=== PATIENT | female | born 1990 | race Caucasian/White ===

== ENCOUNTER 2018-07-14 14:46 | Inpatient (IN) ==
[2018-07-14] MEDS ORDERED: LACTATED RINGERS 1,000 ML IV SCH (15:30)
[2018-07-14 15:55] LABS: Basophils % 0.4 % (0.0-0.8); Eosinophils # 0.1 10*3/uL (0.0-0.87); Eosinophils % 0.5 % (0.00-10.9); Hematocrit 37.4 VOL% (35.7-47.0); Hemoglobin 11.2 GM/DL (12.0-16.0); Immature Granulocytes % 0.5 %; Immature Granulocytes Absolute 0.06 #; Lymphocytes # 1.8 10*3/uL (1.4-4.0); Lymphocytes % 16.3 % (21.3-54.2); Mean Corpuscular HGB Conc 29.9 GM/DL (32-36); Mean Corpuscular Hemoglobin 25 PG (27-34); Mean Corpuscular Volume 81.7 FL (87-102); Monocytes # 0.7 10*3/uL (0.11-0.8); Monocytes % 6.3 % (1.7-12.7); Neutrophils # 8.3 10*3/uL (1.4-7.4); Platelet Count 214 T/CUMM (130-400); Red Blood Count 4.58 MC/CUMM (3.8-5.5); Red Cell Distribution Width 16.3 % (9.3-17.3)
[2018-07-14 16:07] LABS: INR 0.9; PT Patient Result 9.7 SECS; Partial Thromboplastin Time 24.5 SECS (0-40)
[2018-07-14 16:26] LABS: Bilirubin,Direct < 0.100 MG/DL (0.0-0.20); Uric Acid 4.3 MG/DL (2.6-6.0)
[2018-07-14 16:30] LABS: Alanine Aminotransferase 19 U/L (13-56); Albumin 2.3 G/DL (3.4-5.0); Alkaline Phosphatase 188 U/L (45-117); Aspartate Amino Transferase 12 U/L (0-37); Bilirubin,Total < 0.39 MG/DL (0.2-1.0); Blood Urea Nitrogen 13 MG/DL (7-18); Calcium 8.8 MG/DL (8.5-10.1); Glucose 91 MG/DL (74-106); Potassium 3.8 MMOL/L (3.5-5.1); Sodium 136 MMOL/L (136-145); Total Protein 6.7 G/DL (6.4-8.3)
[2018-07-15] MEDS ORDERED: FAMOTIDINE 20 MG/2 ML VIAL IV ONE (09:00)
[2018-07-15] MEDS ORDERED: OXYTOCIN/LR 20 UNIT/1,000 ML BAG IV ONE ×2 (09:00→16:54)
[2018-07-15] MEDS ORDERED: ceFAZolin 3,000 MG in SYRINGE 1 EACH IV ONE (09:00)
[2018-07-15] MEDS ORDERED: CITRIC ACID/SODIUM CITRATE 30 ML UDCUP PO ONE (09:00)
[2018-07-15] MEDS ORDERED: ONDANSETRON 4 MG/2 ML VIAL IV PRN (16:54)
[2018-07-15] MEDS ORDERED: RHO(D) IMMUNE GLOBULIN 300 MCG SYRINGE IM ONE (16:54)
[2018-07-15] MEDS ORDERED: SIMETHICONE CHEW 80 MG TABLET PO PRN (16:54)
[2018-07-15] MEDS ORDERED: ACETAMINOPHEN 325 MG TABLET PO PRN (16:54)
[2018-07-15] MEDS ORDERED: LACTATED RINGERS 1,000 ML IV SCH (17:00)
[2018-07-15] MEDS ORDERED: fentaNYL 100 MCG/2 ML VIAL ONE (17:06)
[2018-07-15] MEDS ORDERED: MORPHINE 10 MG/10 ML VIAL ONE (17:06)
[2018-07-15] MEDS ORDERED: BUPIVACAINE SPINAL 0.75% 2 ML AMP SPINAL ONE (17:07)
[2018-07-15] MEDS ORDERED: PHENYLEPHRINE 1 MG/10 ML SYRINGE IV ONE (17:07)
[2018-07-15] MEDS: oxyCODONE/ACETAMINOPHEN 5-325 MG TABLET PO PRN (21:23)
[2018-07-15] MEDS: IBUPROFEN 800 MG TABLET PO PRN (21:25)
[2018-07-15] MEDS: DOCUSATE SODIUM 100 MG CAPSULE PO SCH (21:26)
[2018-07-16] MEDS: ceFAZolin 1,000 MG in SYRINGE 1 EACH IV SCH ×2 (00:14→06:48)
[2018-07-16 04:30] LABS: Basophils % 0.4 % (0.0-0.8); Eosinophils # 0.1 10*3/uL (0.0-0.87); Eosinophils % 0.9 % (0.00-10.9); Hemoglobin 9.2 GM/DL (12.0-16.0); Immature Granulocytes % 0.4 %; Immature Granulocytes Absolute 0.03 #; Lymphocytes # 1.4 10*3/uL (1.4-4.0); Lymphocytes % 16.9 % (21.3-54.2); Mean Corpuscular HGB Conc 30.7 GM/DL (32-36); Mean Corpuscular Hemoglobin 25 PG (27-34); Mean Corpuscular Volume 80.9 FL (87-102); Monocytes # 0.7 10*3/uL (0.11-0.8); Neutrophils % 73.4 % (38.7-73.9); Platelet Count 134 T/CUMM (130-400); Red Blood Count 3.71 MC/CUMM (3.8-5.5); Red Cell Distribution Width 16.3 % (9.3-17.3); White Blood Count 8.2 T/CUMM (4-12)
[2018-07-16] MEDS: oxyCODONE/ACETAMINOPHEN 5-325 MG TABLET PO PRN ×3 (05:08→20:19)
[2018-07-16] MEDS: IBUPROFEN 800 MG TABLET PO PRN ×2 (05:10→14:54)
[2018-07-16] MEDS: MAGNESIUM HYDROXIDE SUSP 30 ML UDCUP PO PRN ×2 (08:30→20:18)
[2018-07-16] MEDS: MULTIVITAMIN (PRENATAL) TABLET PO SCH (08:30)
[2018-07-16] MEDS: DOCUSATE SODIUM 100 MG CAPSULE PO SCH ×2 (08:30→20:18)
[2018-07-17] MEDS: IBUPROFEN 800 MG TABLET PO PRN ×2 (00:20→07:58)
[2018-07-17 07:11] VITALS: BP 137/74
[2018-07-17] MEDS: MAGNESIUM HYDROXIDE SUSP 30 ML UDCUP PO PRN (07:58)
[2018-07-17] MEDS: oxyCODONE/ACETAMINOPHEN 5-325 MG TABLET PO PRN (07:59)
[2018-07-17] MEDS: DOCUSATE SODIUM 100 MG CAPSULE PO SCH (07:59)
[2018-07-17] MEDS: MULTIVITAMIN (PRENATAL) TABLET PO SCH (07:59)
== END 2018-07-17 12:00 | disposition home or self-care (01) | DRG 788 ==
LOC: N.LDOUT 14:46 → N.LD 14:48 → N.OB 07-15 19:49
PROVIDERS: ADMIT Obstetrics & Gynecology; ATTEND Obstetrics & Gynecology
PROC: LDCSECT (ICD-10-PCS; 2018-07-15 13:30)